=== PATIENT | female | born 1960 | race Caucasian/White ===

== ENCOUNTER → 2020-06-25 09:17 | Outpatient (BNVA) | payer MEDICAID, SELFPAY | PROVIDERS: Visit Provider Nurse Practitioner Family | DX: Z20.828 Contact with and (suspected) exposure to other viral communicable diseases (principal); J06.9 Acute upper respiratory infection, unspecified | CPT/HCPCS: 87635 ==

== ENCOUNTER 2021-09-16 15:21 | Emergency (ER) | payer MEDICAID, SELFPAY ==
[2021-09-16 15:28] VITALS: BP 143/95; PULSE 93; RESP 18; TEMP 37.2; O2SAT 94; BMI 48.2
--- NOTE | 2021-09-16 15:54 | CT_ITS ---
WS: [id number] CT HEAD TECHNIQUE: Noncontrast CT of the head obtained from the skullbase to the vertex. CLINICAL INFORMATION: headache with n/v COMPARISON: None. DLP: 905.[address] scans at [facility] use at least one of these dose optimization techniques: automated e xposure control; mA and/or kV adjustment per patient size (includes targeted exams where dose is matc hed to clinical indication); or iterative reconstruction. FINDINGS: No evidence of intracranial hemorrhage or mass effect. Ventricular system and basal cisterns are liang nt. Mild small vessel changes with mild parenchymal volume loss. Intracranial vascular calcification. No extra-axial fluid collections. No evidence of mass or mass effect. Paranasal sinuses and mastoid air cells are well aerated. .Normal visualized soft tissues. CT/CT head wo con* [id number] IMPRESSION: 1. No evidence of intracranial hemorrhage or mass effect. 2. Mild small vessel changes. Mild parenchymal volume loss. 3. No acute intracranial findings.
--- NOTE | 2021-09-16 15:57 | ED_ITS ---
Documented by User: [email or web address] Duke 09/17/21 07:11 HPI - Headache General: Chief Complaint: Headache Stated Complaint: Headache for 5 days cant eat/drink Time Seen by Provider: 09/16/21 15:35 History of Present Illness: Patient is a 61-year-old female comes to the ED with headache. Symptoms started approximately 5 days ago. Start of headache was gradual progression. She rates her headache a 8 out of 10 currently. Headache is located at the top of her head. Since onset of headache she has had nausea and vomiting as well. Denies any worsening or improving symptoms. She has been taking Tylenol and ibuprofen and it has not helped. Denies any fever, photophobia, numbness tingling to 1 side of her face, weakness to 1 side of her body or any vision changes. Associated symptoms: Reports nausea and vomiting; Deny chest pain, fever(s) or rash Review of Systems Const: Denies: fever(s), chills or fatigue Eyes: Denies: change in vision or eye discomfort ENMT: Denies: throat pain, odynophagia, nasal discharge or nasal congestion Card: Denies: chest pain, palpitations, edema, swelling of feet/ankles, dyspnea on exertion or orthopnea Resp: Denies: dyspnea, productive cough or non-productive cough GI: Reports: nausea and vomiting; Denies: abdominal pain, diarrhea, constipation or hematochezia : Denies: flank pain, dysuria or hematuria Musc: Denies: neck pain, back pain or extremity swelling Skin/Breast: Denies: rash or new lesions Neuro: Reports: headache(s); Denies: numbness in extremities or weakness in extremities [facility] ED PFSH: Medical History No pertinent family history Surgical History No pertinent past surgical history Physical Exam Const: COMMON NORMALS: no acute distress, patient oriented x3 and alert GENERAL APPEARANCE: cooperative and comfortable NUTRITIONAL APPEARANCE: obese HENMT: COMMON NORMALS: normocephalic HEAD & SCALP: normocephalic MOUTH: Normal oral and palatal mucosa present THROAT: posterior oropharynx normal and uvula midline Eye: COMMON NORMALS: Equal, round and reactive pupils present, EOMs intact bilaterally and conjunctivae normal CONJUNCTIVA: Yes conjunctivae normal PUPIL: Yes Equal, round and reactive pupils present Neck/C-Spine: COMMON NORMALS: supple GENERAL: Yes normal visual inspection Resp: COMMON NORMALS: normal respiratory effort, No retractions, No use of accessory muscles and clear to auscultation bilaterally AUSCULTATION: clear to auscultation bilaterally Cardio: COMMON NORMALS: regular rate, regular rhythm, S1 normal heart sound present, S2 normal heart sound present, No gallops present (Cardio), No clicks present (Cardio), No murmurs present (Cardio) and Peripheral pulses 2+ throughout RATE: regular rate RHYTHM: regular rhythm HEART SOUNDS: S1 normal heart sound present and S2 normal heart sound present PERIPHERAL PULSES: Peripheral pulses 2+ throughout GI: COMMON NORMALS: Normal to inspection, nondistended, normoactive bowel sounds present, Soft to palpation, non-tender and no masses PALPATION: Yes Soft to palpation : COMMON NORMALS: Yes no CVA tenderness BLADDER/KIDNEY EXAM: Yes no CVA tenderness Back/Pelvis: COMMON NORMALS: no CVA tenderness Extremity: COMMON NORMALS: normal to inspection Neuro: COMMON NORMALS: patient oriented x3, CN's II-XII intact bilaterally, moves all extremities, no focal motor deficits and no sensory deficits noted SENSORIUM/ORIENTATION: Yes alert SENSORY EXAM: Yes extremities (intact) MOTOR EXAM: 5/5 motor strength present throughout Skin: GENERAL SKIN EXAM: dry skin Course Vital Signs: Vital signs: Vital Signs Temperature 98.9 F 09/16/21 15:28 Pulse Rate 77 09/16/21 17:40 Respiratory Rate 18 09/16/21 17:40 Blood Pressure 110/79 09/16/21 17:40 Pulse Oximetry 95 09/16/21 17:40 MDM - Headache Lab Data I reviewed the patient's lab results. : 09/16/21 16:00 09/16/21 16:[address] 09/16/21 15:54 IMPRESSION: 1. No evidence of intracranial hemorrhage or mass effect. 2. Mild small vessel changes. Mild parenchymal volume loss. 3. No acute intracranial findings. Laboratory Results WBC 8.6 10^3/uL (4.0-10.0) 09/16/21 16:00 RBC 5.00 10^6/uL (4.1-5.3) 09/16/21 16:00 Hgb 15.1 g/dL (11.5-15.3) 09/16/21 16:00 Hct 46.1 % (37.0-47.0) 09/16/21 16:00 MCV 92.2 fl (81-99) 09/16/21 16:00 MCH 30.2 pg (28.0-34.0) 09/16/21 16:00 MCHC 32.8 g/dL (30.0-36.0) 09/16/21 16:00 RDW 14.1 % (12.1-15.1) 09/16/21 16:00 Plt Count 214 10^3/cmm (130-400) 09/16/21 16:00 MPV 11.9 fL (7.4-10.4) H 09/16/21 16:00 Neut % (Auto) 76.4 % 09/16/21 16:00 Lymph % (Auto) 11.8 % 09/16/21 16:00 [place] % (Auto) 11.0 % 09/16/21 16:00 Eos % (Auto) 0.0 % 09/16/21 16:00 Baso % (Auto) 0.2 % 09/16/21 16:00 Neut # (Auto) 6.54 10^3/uL (1.8-7.7) 09/16/21 16:00 Lymph # (Auto) 1.0 10^3/uL (0.8-4.8) 09/16/21 16:00 [place] # (Auto) 0.9 10^3/uL (0.2-0.9) 09/16/21 16:00 Eos # (Auto) 0.0 10^3/uL (0.0-0.8) 09/16/21 16:00 Baso # (Auto) 0.0 10^3/uL (0.0-0.1) 09/16/21 16:00 Nucleated RBC % (auto) 0 % 09/16/21 16:00 Nucleated RBCs # 0.0 /100WBC 09/16/21 16:00 Sodium 131 mmol/L (136-145) L 09/16/21 16:00 Potassium 3.6 mmol/L (3.5-5.1) 09/16/21 16:00 Chloride 96 mmol/L (98-107) L 09/16/21 16:00 Carbon Dioxide 22 mmol/L (22-29) 09/16/21 16:00 Anion Gap 16.6 (5-19) 09/16/21 16:00 BUN 16 mg/dL (8-23) 09/16/21 16:00 Creatinine 0.9 mg/dL (0.5-0.9) 09/16/21 16:00 GFR Calculation 63.7 mL/min (90-130) L 09/16/21 16:00 Glucose 103 mg/dL (65-115) 09/16/21 16:00 Calculated Osmolality 273 mOsm/kg (285-295) L 09/16/21 16:00 Calcium 9.4 mg/dL (8.5-10.5) 09/16/21 16:00 Discharge Plan Discharge Patient Disposition: Home Clinical Impression: Headache Qualifiers: Headache type: unspecified Headache chronicity pattern: acute headache Intractability: not intractable Qualified Code(s): R51.9 - Headache, unspecified Condition: Stable Prescriptions: New Fioricet 50-300-40 mg capsule 1 cap PO Q6H PRN (Reason: pain) Qty: 14 0RF No Action omeprazole 40 mg capsule,delayed release(DR/EC) 40 mg PO QAM 0RF ibuprofen 200 mg Tablet 400 mg PO Q6H PRN (Reason: Pain) 0RF Humira Pen 40 mg/0.8 mL pen injector kit 40 mg SUBCUT Q14D 0RF Discharge Orders: Discharge ED (Routine); Ordered 09/16/21 Ordered By: Ravi Hale Discharge Diet: Usual diet Discharge Activity: Increase activity as tolerated Activity Restrictions/Additional Instructions: Follow-up with medical provider as directed. Take medications as prescribed. Return to the ER or your medical provider if condition worsens. Please read and understand discharge instructions. If any questions ask please. Sign Out Sign Out Data: Patient Sign Out occurred on 09/16/21 at 17:21. Patient's care was discussed, and care was transferred from to Esteban Mancilla MD. Coding Level of Care Code ED Grinder Set Up Operator Universal for Chg Fwd Exam Comprehensive Documented by User: DONELL Fatima 09/16/21 19:03 HPI - Headache General: Chief Complaint: Headache Stated Complaint: Headache for 5 days cant eat/drink Time Seen by Provider: 09/16/21 15:35 [facility] ED PFSH: Medical History No pertinent family history Surgical History No pertinent past surgical history Course Vital Signs: Vital signs: Vital Signs Temperature 98.9 F 09/16/21 15:28 Pulse Rate 77 09/16/21 17:40 Respiratory Rate 18 09/16/21 17:40 Blood Pressure 110/79 09/16/21 17:40 Pulse Oximetry 95 09/16/21 17:40 MDM - Headache Medical Decision Making Patient presents here with a headache today.'s been going on for 5 days. Patient's been having increased stress in her life. Pain started back and neck went up behind her eyes and kind and stayed there behind the right eye more than the left. Patient responded well to IV and pain medication here. Patient diagnosed with tension stress headaches follow-up primary care provider. Lab Data : 09/16/21 16:00 09/16/21 16:[address] 09/16/21 15:54 IMPRESSION: 1. No evidence of intracranial hemorrhage or mass effect. 2. Mild small vessel changes. Mild parenchymal volume loss. 3. No acute intracranial findings. Laboratory Results WBC 8.6 10^3/uL (4.0-10.0) 09/16/21 16:00 RBC 5.00 10^6/uL (4.1-5.3) 09/16/21 16:00 Hgb 15.1 g/dL (11.5-15.3) 09/16/21 16:00 Hct 46.1 % (37.0-47.0) 09/16/21 16:00 MCV 92.2 fl (81-99) 09/16/21 16:00 MCH 30.2 pg (28.0-34.0) 09/16/21 16:00 MCHC 32.8 g/dL (30.0-36.0) 09/16/21 16:00 RDW 14.1 % (12.1-15.1) 09/16/21 16:00 Plt Count 214 10^3/cmm (130-400) 09/16/21 16:00 MPV 11.9 fL (7.4-10.4) H 09/16/21 16:00 Neut % (Auto) 76.4 % 09/16/21 16:00 Lymph % (Auto) 11.8 % 09/16/21 16:00 [place] % (Auto) 11.0 % 09/16/21 16:00 Eos % (Auto) 0.0 % 09/16/21 16:00 Baso % (Auto) 0.2 % 09/16/21 16:00 Neut # (Auto) 6.54 10^3/uL (1.8-7.7) 09/16/21 16:00 Lymph # (Auto) 1.0 10^3/uL (0.8-4.8) 09/16/21 16:00 [place] # (Auto) 0.9 10^3/uL (0.2-0.9) 09/16/21 16:00 Eos # (Auto) 0.0 10^3/uL (0.0-0.8) 09/16/21 16:00 Baso # (Auto) 0.0 10^3/uL (0.0-0.1) 09/16/21 16:00 Nucleated RBC % (auto) 0 % 09/16/21 16:00 Nucleated RBCs # 0.0 /100WBC 09/16/21 16:00 Sodium 131 mmol/L (136-145) L 09/16/21 16:00 Potassium 3.6 mmol/L (3.5-5.1) 09/16/21 16:00 Chloride 96 mmol/L (98-107) L 09/16/21 16:00 Carbon Dioxide 22 mmol/L (22-29) 09/16/21 16:00 Anion Gap 16.6 (5-19) 09/16/21 16:00 BUN 16 mg/dL (8-23) 09/16/21 16:00 Creatinine 0.9 mg/dL (0.5-0.9) 09/16/21 16:00 GFR Calculation 63.7 mL/min (90-130) L 09/16/21 16:00 Glucose 103 mg/dL (65-115) 09/16/21 16:00 Calculated Osmolality 273 mOsm/kg (285-295) L 09/16/21 16:00 Calcium 9.4 mg/dL (8.5-10.5) 09/16/21 16:00 Discharge Plan Discharge Patient Disposition: Home Clinical Impression: Headache Qualifiers: Headache type: unspecified Headache chronicity pattern: acute headache Intractability: not intractable Qualified Code(s): R51.9 - Headache, unspecified Condition: Stable Prescriptions: New Fioricet 50-300-40 mg capsule 1 cap PO Q6H PRN (Reason: pain) Qty: 14 0RF No Action omeprazole 40 mg capsule,delayed release(DR/EC) 40 mg PO QAM 0RF ibuprofen 200 mg Tablet 400 mg PO Q6H PRN (Reason: Pain) 0RF Humira Pen 40 mg/0.8 mL pen injector kit 40 mg SUBCUT Q14D 0RF Discharge Orders: Discharge ED (Routine); Ordered 09/16/21 Ordered By: Ravi Hale Discharge Diet: Usual diet Discharge Activity: Increase activity as tolerated Activity Restrictions/Additional Instructions: Follow-up with medical provider as directed. Take medications as prescribed. Return to the ER or your medical provider if condition worsens. Please read and understand discharge instructions. If any questions ask please. Sign Out Sign Out Data: Patient Sign Out occurred on 09/16/21 at 17:21. Patient's care was discussed, and care was transferred from to Esteban Mancilla MD. Coding Level of Care Code ED Grinder Set Up Operator Universal for Leonela Fwd Exam Comprehensive
[2021-09-16 16:10] LABS: Basophils % 0.2 %; Hematocrit 46.1 % (37.0-47.0); Hemoglobin 15.1 g/dL (11.5-15.3); Lymphocytes % 11.8 %; Mean Corpuscular HGB Conc 32.8 g/dL (30.0-36.0); Mean Corpuscular Hemoglobin 30.2 pg (28.0-34.0); Mean Corpuscular Volume 92.2 fl (81-99); Mean Platelet Volume 11.9 fL (7.4-10.4); Monocytes # 0.9 10^3/uL (0.2-0.9); Neutrophils # 6.54 10^3/uL (1.8-7.7); Neutrophils % 76.4 %; Nucleated Red Blood Cells % 0 %; Platelet Count 214 10^3/cmm (130-400); Red Cell Distribution Width 14.1 % (12.1-15.1); White Blood Count 8.6 10^3/uL (4.0-10.0)
[2021-09-16 16:26] LABS: Anion Gap 16.6 (5-19); Blood Urea Nitrogen 16 mg/dL (8-23); Calcium 9.4 mg/dL (8.5-10.5); Carbon Dioxide 22 mmol/L (22-29); Chloride 96 mmol/L (98-107); Glomerular Filtration Rate 63.7 mL/min (90-130); Glucose 103 mg/dL (65-115); Osmolality Calculated 273 mOsm/kg (285-295); Potassium 3.6 mmol/L (3.5-5.1); Sodium 131 mmol/L (136-145)
[2021-09-16] MEDS: sodium chloride 0.9% 500 ML 999 ML IV (16:30)
[2021-09-16] MEDS: diphenhydrAMINE 50 mg/mL SDV 1mL 25 MG IVP (16:30)
[2021-09-16] MEDS: metoclopramide 5 mg/mL SDV 2 mL 10 MG IVP (16:32)
[2021-09-16] MEDS: dexamethasone 10 mg/mL INJ IVP (16:32)
[2021-09-16] MEDS: ketorolac 30 mg/mL INJ IVP (16:32)
[2021-09-16 16:59] VITALS: BP 110/79; PULSE 77; RESP 20; O2SAT 95
[2021-09-16 17:40] VITALS: BP 110/79; PULSE 77; RESP 18; O2SAT 95
== END 2021-09-16 17:44 | disposition home or self-care (01) ==
PROVIDERS: Physician Assistant; Emergency Provider Nurse Practitioner Family
DX: R51.9 Headache, unspecified (principal)
CPT/HCPCS: 70450; 80048; 85025; 96374; 96375; 99283; J1100; J1200; J1885; J2765; J7040

== ENCOUNTER 2022-11-09 10:00 | Outpatient (CLI) | payer MEDICAID, SELFPAY ==
--- NOTE | 2022-11-09 10:21 | MM_ITS ---
WS: [id number] BILATERAL SCREENING DIGITAL TOMOSYNTHESIS MAMMOGRAM WITH CAD HISTORY: SCREENING COMPARISON: 04/18/2019 Bilateral CC and MLO views with tomosynthesis and synthetic mammography submitted. Computer aided det ection analyzed. Breast composition: The breasts are almost entirely fatty. No suspicious masses, microcalcifications or architectural distortion. Benign coarse calcification central LEFT breast. MM/[place] [id number] IMPRESSION: BI-RADS: 1-Negative FOLLOW UP: 1 Year Follow-up
== END 2022-11-09 10:01 | disposition home or self-care (01) ==
LOC: RAD 10:03
PROVIDERS: PCP Family Medicine; Visit Provider Family Medicine
DX: Z12.31 Encounter for screening mammogram for malignant neoplasm of breast (principal)
CPT/HCPCS: 77063; 77067